=== PATIENT | male | born 1985 | race Two or more races ===

== ENCOUNTER 2021-03-01 08:13 | Day surgery (SDC) | payer OTHER ==
[~2021-03-01] VITALS: Ht 185.4 cm; Wt 91.2 kg
[2021-03-01] MEDS ORDERED: fentaNYL citrate 0.05 MG/ML VIAL ONE (09:47)
[2021-03-01] MEDS ORDERED: LIDOCAINE 2% 100 MG/5 ML UJET TP ONE (09:47)
[2021-03-01] MEDS ORDERED: fentaNYL citrate 0.05 MG/ML VIAL IVP ONE (10:55)
== END 2021-03-01 11:18 | disposition home or self-care (01) ==
LOC: MFCC 08:13 → MDS 08:13
PROVIDERS: ATTEND Internal Medicine Gastroenterology
DX: K62.5 Hemorrhage of anus and rectum (principal); K64.4 Residual hemorrhoidal skin tags; K57.30 Diverticulosis of large intestine without perforation or abscess without bleeding; Z20.822 Contact with and (suspected) exposure to COVID-19; Z79.899 Other long term (current) drug therapy
CPT/HCPCS: 45378; 87426; J3010